=== PATIENT | female | born 1960 | race Caucasian/White ===

== ENCOUNTER 2017-04-03 12:10 | Outpatient (CLI) | payer OTHER | END 2017-04-03 12:15 | LOC: OUT 12:10 | PROVIDERS: ATTEND Nurse Practitioner Family | DX: K31.84 Gastroparesis (principal) | CPT/HCPCS: G0271 ==

== ENCOUNTER 2017-04-20 12:23 | Outpatient (CLI) | payer OTHER ==
--- NOTE | 2017-04-20 15:17 | Diagnostic Imaging Report ---
MARVIN WHITEHEAD [facility] [address] [facility] [address] [place] [address]. [id number] Report Submission Date: Apr 20, 2017 2:48:31 PM CDT Patient Study Name: JOANA ROGER Date: Apr 20, 2017 12:33:30 PM CDT Modality Type: CR Gender: F Description: SPINE : 62 Institution: [facility] Physician: MARVIN WHITEHEAD Lumbar spine, 3 views. History: Back pain, no injury. Findings: Bilateral pedicle screws and post-fusion hardware is present at the L4 through S1 level. The vertebral body height are normal throughout. There is multilevel facet arthropathy with degenerative mild anterolisthesis L3 on L4. Impression: 1.Postoperative and the lower lumbar spine between L4 and S1. 2. Mild spondylosis Electronically signed on Apr 20, 2017 2:48:31 PM CDT by: John FUENTES
== END 2017-04-20 12:24 ==
LOC: RAD 12:23
PROVIDERS: ATTEND Internal Medicine Hepatology
DX: M54.9 Dorsalgia, unspecified (principal)
CPT/HCPCS: 72100